=== PATIENT | female | born 2005 | race Caucasian/White ===

== ENCOUNTER 2025-03-25 05:38 | Inpatient (IN) | payer OTHER ==
[2025-03-25] MEDS: ELECTROLYTE-148 SOLN 500 ML IV SCH (06:25)
[2025-03-25 06:33] VITALS: BMI 37.6
[2025-03-25] MEDS: CITRIC ACID/SODIUM CITRATE 30 ML UNIT-DOSE CUP PO ONE (07:45)
[2025-03-25] MEDS: ELECTROLYTE-148 SOLN 1,000 ML IV SCH (08:00)
[2025-03-25] MEDS ORDERED: PHENYLEPHRINE HCL 10 MG/1 ML SINGLE DOSE VIAL ONE (09:32)
[2025-03-25] MEDS ORDERED: KETOROLAC TROMETHAMINE 30 MG/1 ML VIAL ONE (09:33)
[2025-03-25] MEDS ORDERED: ceFAZolin SODIUM 1 GM VIAL ONE (09:33)
[2025-03-25] MEDS ORDERED: ONDANSETRON 4 MG/2 ML VIAL ONE (09:33)
[2025-03-25] MEDS ORDERED: METOCLOPRAMIDE HCL INJECTION 10 MG/2 ML VIAL ONE (09:33)
[2025-03-25] MEDS ORDERED: OXYTOCIN 10 UNITS/ML VIAL ONE ×3 (09:33→10:53)
[2025-03-25] MEDS ORDERED: DEXAMETHASONE SOD PHOSPHATE 4 MG/1 ML VIAL ONE (09:33)
[2025-03-25] MEDS ORDERED: NITROGLYCERIN 50 MG/10 ML VIAL IVPB ONE (09:34)
[2025-03-25] MEDS ORDERED: SODIUM CHLORIDE 0.9% P/F 10 ML VIAL IJ ONE (09:34)
[2025-03-25] MEDS ORDERED: FENTANYL CITRATE/PF 50 MCG/ML VIAL ONE (09:40)
[2025-03-25] MEDS ORDERED: morphine SULFATE (PF) 1 MG/2 ML SYRINGE ONE (09:40)
[2025-03-25] MEDS ORDERED: MISOPROSTOL 200 MCG TABLET ONE (10:42)
[2025-03-25] MEDS: MISOPROSTOL 200 MCG TABLET NR ONE (11:15)
[2025-03-25] MEDS ORDERED: WITCH HAZEL 50% (TUCKS) 40 PAD/JAR PAD TP PRN (11:26)
[2025-03-25] MEDS ORDERED: METHYLERGONOVINE MALEATE 0.2 MG/1 ML AMP IM PRN (11:26)
[2025-03-25 11:36] LABS: CORD BASE EXCESS -5.4 mmol/L (0-2); CORD HCO3 22.5 mmHg (20-29); CORD PCO2 53.3 mmHg (30-78); CORD pH 7.243 (7.14-7.44)
[2025-03-25 11:37] LABS: CORD BASE EXCESS -3.1 mmol/L (0-2); CORD pH 7.326 (7.14-7.44)
[2025-03-25 11:39] LABS: CORD BASE EXCESS -2.3 mmol/L (0-2); CORD HCO3 23.6 mmHg (20-29); CORD PCO2 44.7 mmHg (30-78); CORD pH 7.341 (7.14-7.44)
[2025-03-25 11:40] LABS: CORD HCO3 24.3 mmHg (20-29); CORD PCO2 53.9 mmHg (30-78); CORD pH 7.272 (7.14-7.44)
[2025-03-25] MEDS ORDERED: OXYTOCIN 20 UNITS in 0.9% NS 20 UNIT/1,000 ML INFUS.BAG IV ONE (11:59)
[2025-03-25] MEDS: OXYTOCIN 20 UNITS in 0.9% NS 20 UNIT/1,000 ML INFUS.BAG IV SCH (12:00)
[2025-03-25 14:46] VITALS: RESP 18
[2025-03-25] MEDS ORDERED: oxyCODONE HCL 5 MG TABLET PO PRN (23:27)
[2025-03-26 08:23] LABS: ABSOLUTE IMMATURE GRANULOCYTES 0.06 x10^3/uL (0.0-0.031); BASOPHILS # 0.04 x10^3/uL (0.01-0.08); EOSINOPHIL % 0.3 % (0.7-5.8); EOSINOPHILS # 0.03 x10^3/uL (0.04-0.36); HEMATOCRIT 32.6 % (34.1-44.9); HEMOGLOBIN 10.4 g/dL (11.2-15.7); MCHC 31.9 g/dl (32.2-35.5); MEAN PLT VOLUME 10.8 fl (9.4-12.3); MONOCYTE # 0.89 x10^3/uL (0.24-0.86); MONOCYTE % 7.9 % (4.7-12.5); PLATELET COUNT 305 x10^3/uL (182-369); RDW 13.3 % (12.1-16.5)
[2025-03-26] MEDS: ACETAMINOPHEN 1000 MG/100 ML BAG IVPB PRN (10:36)
[2025-03-26] MEDS: SIMETHICONE 80 MG TAB.CHEW (FP) PO PRN (10:37)
[2025-03-26] MEDS: PRENATAL VITAMINS W/ FOLIC ACID TABLET (FP) PO SCH (10:37)
[2025-03-26] MEDS ORDERED: BISACODYL 10 MG SUPP.RECT RC PRN (11:27)
[2025-03-26] MEDS: IBUPROFEN 600 MG TABLET (FP) PO PRN (18:10)
[2025-03-27] MEDS: oxyCODONE HCL 5 MG TABLET PO PRN (21:31)
[2025-03-28 08:09] LABS: ABSOLUTE IMMATURE GRANULOCYTES 0.09 x10^3/uL (0.0-0.031); BASOPHILS # 0.04 x10^3/uL (0.01-0.08); EOSINOPHIL % 2.3 % (0.7-5.8); EOSINOPHILS # 0.26 x10^3/uL (0.04-0.36); HEMATOCRIT 34.8 % (34.1-44.9); HEMOGLOBIN 10.9 g/dL (11.2-15.7); MCHC 31.3 g/dl (32.2-35.5); MEAN CELL VOLUME 84.1 fl (79.4-94.8); MEAN PLT VOLUME 10.4 fl (9.4-12.3); MONOCYTE # 0.76 x10^3/uL (0.24-0.86); MONOCYTE % 6.7 % (4.7-12.5); PLATELET COUNT 357 x10^3/uL (182-369); RDW 13.7 % (12.1-16.5)
[2025-03-28] MEDS: ACETAMINOPHEN 325 MG TABLET (FP) PO PRN (21:41)
[2025-03-29 11:22] VITALS: BP 111/75; PULSE 60; TEMP 98
== END 2025-03-29 14:35 | disposition home or self-care (01) | DRG 540 ==
LOC: JLDR 05:38 → J3W 13:55
PROVIDERS: ADMIT Obstetrics & Gynecology Obstetrics; ATTEND Obstetrics & Gynecology Obstetrics
PROC: 10D00Z1 Extraction of Products of Conception, Low, Open Approach (ICD-10-PCS; principal; 2025-03-25)
DX: O30.033 Twin pregnancy, monochorionic/diamniotic, third trimester (principal); O60.14X2 Preterm labor third trimester with preterm delivery third trimester, fetus 2; Z3A.35 35 weeks gestation of pregnancy; Z37.2 Twins, both liveborn
CPT/HCPCS: 36415; 36600; 80053; 82803; 85025; 85610; 85730; 86850; 86900; 86901; 86922; 88307-TC; 93970-TC